=== PATIENT | female | born 1955 | race Caucasian/White ===

== ENCOUNTER 2017-06-06 14:41 | Inpatient (IN) | payer BC, MEDICARE ==
[2017-06-06] MEDS ORDERED: MIDAZOLAM 1 MG/ML 2 ML INJ ×2 (16:37)
[2017-06-06] MEDS ORDERED: PROPOFOL 20 ML (16:37)
[2017-06-06] MEDS ORDERED: HYDROCORTISONE 100 MG INJ (16:37)
[2017-06-06] MEDS ORDERED: ROPIVACAINE 0.5 % 30 ML VIAL ×2 (16:42→17:10)
[2017-06-06] MEDS ORDERED: CEFAZOLIN 1 GM INJ (17:48)
[2017-06-06] MEDS ORDERED: OXYCODONE/ACETAMINOPHEN (5/325) TAB PO ×3 (18:00→20:00)
[2017-06-06] MEDS ORDERED: DIPHENHYDRAMINE 25 MG CAP PO (18:00)
[2017-06-06] MEDS ORDERED: morphine 10 MG INJ IV (18:00)
[2017-06-06] MEDS ORDERED: PHENYLephrine (100 MCG/ML) 5ML SYG ×2 (18:00→20:11)
[2017-06-06] MEDS ORDERED: ROCURONIUM 50 MG INJ (18:17)
[2017-06-06] MEDS: POLYMYXIN/BACITRACIN 1L IRRIG (18:33)
[2017-06-06] MEDS ORDERED: METOCLOPRAMIDE 10 MG INJ (19:21)
[2017-06-06] MEDS ORDERED: DEXAMETHASONE 4 MG/ML 1 ML INJ (19:21)
[2017-06-06] MEDS ORDERED: ACETAMINOPHEN 1000MG/100ML IV 100 ML (19:21)
[2017-06-06] MEDS ORDERED: ONDANSETRON 4 MG INJ (19:21)
[2017-06-06] MEDS ORDERED: KETOROLAC 30 MG INJ (19:21)
[2017-06-06] MEDS ORDERED: SUGAMMADEX SODIUM 200 MG/2 ML VIAL IV (19:33)
[2017-06-06] MEDS ORDERED: hydrALAzine 20 MG INJ (19:38)
[2017-06-06] MEDS ORDERED: METOCLOPRAMIDE 10 MG INJ IV (20:00)
[2017-06-06] MEDS ORDERED: EPHEDrine SULFATE 50 MG/5 ML SYG IV (20:00)
[2017-06-06] MEDS ORDERED: FENTAnyl 50 MCG/ML VIAL IV (20:00)
[2017-06-06] MEDS ORDERED: HYDROmorphONE (0.2 MG/ML) 10ML SYG IV ×3 (20:00)
[2017-06-06] MEDS ORDERED: ONDANSETRON 4 MG INJ IV (20:00)
[2017-06-06] MEDS: BACITRACIN/POLYMYXIN 28.35 GM OINT TOP (20:37)
[2017-06-06] MEDS: FENTAnyl 50 MCG/ML VIAL IV ×2 (20:45→20:57)
[2017-06-06] MEDS: ONDANSETRON 4 MG INJ IV (20:59)
[2017-06-06] MEDS: MEPERIDINE 25 MG INJ IV (20:59)
[2017-06-06] MEDS: DIPHENHYDRAMINE 50 MG INJ IV (21:23)
[2017-06-06] MEDS: oxyCODONE 5 MG TAB PO (22:53)
[2017-06-07] MEDS: oxyCODONE 5 MG TAB PO ×7 (01:00→22:06)
[2017-06-07] MEDS: HYDROmorphONE 1 MG/ML SYG IV (05:41)
[2017-06-07] MEDS: ASPIRIN 81 MG TAB PO ×2 (08:30→20:38)
[2017-06-07] MEDS: VENLAFAXINE (XR) 75 MG CAP PO (08:31)
[2017-06-07] MEDS: PRIMIDONE 50 MG TAB PO ×3 (09:00→20:38)
[2017-06-07 09:21] LABS: ADD MAN DIFF? NO
[2017-06-07 09:36] LABS: BASOPHILS % 0.1 % (0.0-2.0); EOSINOPHILS % 0.1 % (0.0-7.0); HEMATOCRIT 37.8 % (37.0-47.0); HEMOGLOBIN 12.4 g/dl (12.0-16.0); LYMPHOCYTES # 1.2 10^3/ul (0.8-2.9); LYMPHOCYTES % 14.3 % (15.0-51.0); MEAN CORPUSCULAR HEMOGLOBIN 31.2 pg (29.0-33.0); MEAN CORPUSCULAR HGB CONC 32.8 g/dl (32.0-37.0); MEAN CORPUSCULAR VOLUME 95.2 fl (82.0-101.0); MEAN PLATELET VOLUME 9.9 fl (7.4-10.4); MONOCYTES % 11.3 % (0.0-11.0); NEUTROPHIL # 6.2 10^3/ul (1.6-7.5); PLATELET COUNT 228 10^3/UL (140-415); RED BLOOD COUNT 3.97 10^6/ul (4.20-5.40)
[2017-06-07 09:36] LABS: WHITE BLOOD COUNT 8.4 10^3/ul (4.8-10.8)
[2017-06-07 09:44] LABS: ALANINE AMINOTRANSFERASE 27 IU/L (13-69); ALBUMIN 3.5 g/dl (3.3-4.9); ALBUMIN/GLOBULIN RATIO 1.12; ALKALINE PHOSPHATASE 60 IU/L (42-121); ANION GAP 9 (8-16); ASPARTATE AMINO TRANSFERASE 27 IU/L (15-46); BILIRUBIN,INDIRECT 0.1 mg/dl (0-1.1); BILIRUBIN,TOTAL 0.1 mg/dl (0.2-1.3); BLOOD UREA NITROGEN 11 mg/dl (7-20); CARBON DIOXIDE 30 mmol/L (21-31); CHLORIDE 105 mmol/L (97-110); CREATININE 0.66 mg/dl (0.44-1.00); GLUCOSE 123 mg/dl (70-220); POTASSIUM 4.1 mmol/L (3.5-5.1); SODIUM 140 mmol/L (135-144); TOTAL PROTEIN 6.6 g/dl (6.1-8.1)
[2017-06-07] MEDS: predniSONE 5 MG TAB PO (11:23)
[2017-06-07] MEDS ORDERED: HYDROmorphONE 4 MG TAB PO (12:00)
[2017-06-07] MEDS: PREGABALIN 100 MG CAP PO (13:00)
[2017-06-07] MEDS: oxyCODONE (CR) 10 MG TAB [oxyCONTIN] PO (20:37)
[2017-06-07] MEDS: PREGABALIN 50 MG CAP PO (20:38)
[2017-06-08] MEDS: oxyCODONE 5 MG TAB PO (02:08)
[2017-06-08] MEDS: VENLAFAXINE (XR) 75 MG CAP PO (08:19)
[2017-06-08] MEDS: predniSONE 5 MG TAB PO (08:19)
[2017-06-08] MEDS: AMLODIPINE 5 MG TAB PO (08:20)
[2017-06-08] MEDS: ASPIRIN 81 MG TAB PO ×2 (08:20→19:59)
[2017-06-08] MEDS: oxyCODONE (CR) 10 MG TAB [oxyCONTIN] PO ×4 (08:29→19:58)
[2017-06-08] MEDS: PREGABALIN 50 MG CAP PO ×2 (08:29→19:59)
[2017-06-08] MEDS: CHOLECALCIFEROL 1,000 UNIT TAB PO (18:57)
[2017-06-08] MEDS: MULTIVITAMINS THERAPEUTIC TAB PO (18:57)
[2017-06-08] MEDS: PRIMIDONE 50 MG TAB PO (19:58)
[2017-06-08] MEDS: DOCUSATE SODIUM 100 MG CAP PO (23:20)
[2017-06-08] MEDS: POLYETHYLENE GLYCOL 17 GM PACKET PO (23:21)
[2017-06-09] MEDS: oxyCODONE 5 MG TAB PO ×2 (06:48→12:39)
[2017-06-09] MEDS: QUINACRINE PO (08:14)
[2017-06-09] MEDS: ASPIRIN 81 MG TAB PO ×2 (08:16→20:42)
[2017-06-09] MEDS: VENLAFAXINE (XR) 75 MG CAP PO (08:16)
[2017-06-09] MEDS: predniSONE 5 MG TAB PO (08:17)
[2017-06-09] MEDS: MULTIVITAMINS THERAPEUTIC TAB PO (08:17)
[2017-06-09] MEDS: AMLODIPINE 5 MG TAB PO (08:17)
[2017-06-09] MEDS: DOCUSATE SODIUM 100 MG CAP PO ×2 (08:17→20:41)
[2017-06-09] MEDS: POLYETHYLENE GLYCOL 17 GM PACKET PO (08:18)
[2017-06-09] MEDS: CHOLECALCIFEROL 1,000 UNIT TAB PO (08:18)
[2017-06-09] MEDS: oxyCODONE (CR) 10 MG TAB [oxyCONTIN] PO ×3 (08:32→20:42)
[2017-06-09] MEDS: PREGABALIN 50 MG CAP PO ×2 (08:32→20:42)
[2017-06-09] MEDS: PRIMIDONE 50 MG TAB PO (20:42)
[2017-06-10] MEDS: oxyCODONE 5 MG TAB PO ×3 (06:26→21:56)
[2017-06-10] MEDS: POLYETHYLENE GLYCOL 17 GM PACKET PO (09:12)
[2017-06-10] MEDS: QUINACRINE PO (09:13)
[2017-06-10] MEDS: CHOLECALCIFEROL 1,000 UNIT TAB PO (09:14)
[2017-06-10] MEDS: ASPIRIN 81 MG TAB PO ×2 (09:14→21:56)
[2017-06-10] MEDS: predniSONE 5 MG TAB PO (09:14)
[2017-06-10] MEDS: MULTIVITAMINS THERAPEUTIC TAB PO (09:14)
[2017-06-10] MEDS: PREGABALIN 50 MG CAP PO ×2 (09:14→21:56)
[2017-06-10] MEDS: DOCUSATE SODIUM 100 MG CAP PO ×2 (09:14→21:56)
[2017-06-10] MEDS: ALENDRONATE 70 MG TAB PO (09:15)
[2017-06-10] MEDS: VENLAFAXINE (XR) 75 MG CAP PO (09:15)
[2017-06-10] MEDS: oxyCODONE (CR) 10 MG TAB [oxyCONTIN] PO (09:17)
[2017-06-10] MEDS: PRIMIDONE 50 MG TAB PO (21:56)
[2017-06-11] MEDS: oxyCODONE 5 MG TAB PO ×2 (02:19→09:08)
[2017-06-11] MEDS: predniSONE 5 MG TAB PO (08:59)
[2017-06-11] MEDS: ASPIRIN 81 MG TAB PO ×2 (08:59→21:17)
[2017-06-11] MEDS: PREGABALIN 50 MG CAP PO ×2 (08:59→21:17)
[2017-06-11] MEDS: MULTIVITAMINS THERAPEUTIC TAB PO (08:59)
[2017-06-11] MEDS: VENLAFAXINE (XR) 75 MG CAP PO (08:59)
[2017-06-11] MEDS: POLYETHYLENE GLYCOL 17 GM PACKET PO (09:00)
[2017-06-11] MEDS: DOCUSATE SODIUM 100 MG CAP PO ×2 (09:00→21:17)
[2017-06-11] MEDS: QUINACRINE PO (09:00)
[2017-06-11] MEDS: CHOLECALCIFEROL 1,000 UNIT TAB PO (09:00)
[2017-06-11] MEDS: PRIMIDONE 50 MG TAB PO (21:17)
[2017-06-12] MEDS: VENLAFAXINE (XR) 75 MG CAP PO (08:59)
[2017-06-12] MEDS: DOCUSATE SODIUM 100 MG CAP PO ×2 (08:59→20:38)
[2017-06-12] MEDS: CHOLECALCIFEROL 1,000 UNIT TAB PO (08:59)
[2017-06-12] MEDS: QUINACRINE PO (09:00)
[2017-06-12] MEDS: POLYETHYLENE GLYCOL 17 GM PACKET PO (09:00)
[2017-06-12] MEDS: predniSONE 5 MG TAB PO (09:00)
[2017-06-12] MEDS: PREGABALIN 50 MG CAP PO ×2 (09:00→20:38)
[2017-06-12] MEDS: MULTIVITAMINS THERAPEUTIC TAB PO (09:00)
[2017-06-12] MEDS: ASPIRIN 81 MG TAB PO (09:00)
[2017-06-12] MEDS: oxyCODONE 5 MG TAB PO ×2 (10:46→15:07)
[2017-06-12] MEDS: HYDROCHLOROTHIAZIDE 25 MG TAB PO (11:39)
[2017-06-12] MEDS: AMLODIPINE 10 MG TAB PO (11:40)
[2017-06-12] MEDS: LOSARTAN 50 MG TAB PO (11:40)
[2017-06-12] MEDS: ACETAMINOPHEN 325 MG TAB PO (12:31)
[2017-06-12 17:28] LABS: ADD MAN DIFF? NO
[2017-06-12 17:36] LABS: BASOPHILS % 0.5 % (0.0-2.0); EOSINOPHILS # 0.2 10^3/ul (0.0-0.5); EOSINOPHILS % 2.4 % (0.0-7.0); HEMATOCRIT 40.2 % (37.0-47.0); HEMOGLOBIN 13.2 g/dl (12.0-16.0); LYMPHOCYTES # 1.2 10^3/ul (0.8-2.9); LYMPHOCYTES % 18.5 % (15.0-51.0); MEAN CORPUSCULAR HEMOGLOBIN 30.9 pg (29.0-33.0); MEAN CORPUSCULAR HGB CONC 32.8 g/dl (32.0-37.0); MEAN CORPUSCULAR VOLUME 94.1 fl (82.0-101.0); MEAN PLATELET VOLUME 9.6 fl (7.4-10.4); MONOCYTE # 0.5 10^3/ul (0.3-0.9); MONOCYTES % 7.3 % (0.0-11.0); NEUTROPHIL # 4.4 10^3/ul (1.6-7.5); PLATELET COUNT 285 10^3/UL (140-415); RED BLOOD COUNT 4.27 10^6/ul (4.20-5.40); RED CELL DISTRIBUTION WIDTH 13.5 % (11.5-14.5)
[2017-06-12 17:36] LABS: WHITE BLOOD COUNT 6.3 10^3/ul (4.8-10.8)
[2017-06-12 18:05] LABS: ANION GAP 14 (8-16); BLOOD UREA NITROGEN 14 mg/dl (7-20); CALCIUM 9.1 mg/dl (8.4-10.2); CARBON DIOXIDE 28 mmol/L (21-31); CHLORIDE 102 mmol/L (97-110); CREATININE 0.71 mg/dl (0.44-1.00); GLUCOSE 134 mg/dl (70-220); PHOSPHORUS 3.6 mg/dl (2.5-4.9); POTASSIUM 3.9 mmol/L (3.5-5.1); SODIUM 140 mmol/L (135-144)
[2017-06-12] MEDS: RIVAROXABAN 10 MG TABLET PO (18:20)
[2017-06-12] MEDS: AMLODIPINE 5 MG TAB PO (20:39)
[2017-06-12] MEDS: PRIMIDONE 50 MG TAB PO (20:39)
[2017-06-13] MEDS: POLYETHYLENE GLYCOL 17 GM PACKET PO (09:00)
[2017-06-13] MEDS ORDERED: AMLODIPINE 10 MG TAB PO (09:00)
[2017-06-13] MEDS: DOCUSATE SODIUM 100 MG CAP PO ×2 (09:21→20:53)
[2017-06-13] MEDS: CHOLECALCIFEROL 1,000 UNIT TAB PO (09:21)
[2017-06-13] MEDS: oxyCODONE 5 MG TAB PO ×2 (09:23→18:21)
[2017-06-13] MEDS: MULTIVITAMINS THERAPEUTIC TAB PO (09:23)
[2017-06-13] MEDS: PREGABALIN 50 MG CAP PO ×2 (09:23→20:52)
[2017-06-13] MEDS: predniSONE 5 MG TAB PO (09:24)
[2017-06-13] MEDS: VENLAFAXINE (XR) 75 MG CAP PO (09:24)
[2017-06-13] MEDS: AMLODIPINE 5 MG TAB PO ×2 (09:25→20:52)
[2017-06-13] MEDS: HYDROCHLOROTHIAZIDE 25 MG TAB PO (09:25)
[2017-06-13] MEDS: LOSARTAN 50 MG TAB PO (09:25)
[2017-06-13] MEDS: QUINACRINE PO (09:26)
[2017-06-13] MEDS: RIVAROXABAN 10 MG TABLET PO (18:11)
[2017-06-13] MEDS: PRIMIDONE 50 MG TAB PO (20:51)
[2017-06-14] MEDS: PREGABALIN 50 MG CAP PO ×2 (08:41→21:05)
[2017-06-14] MEDS: VENLAFAXINE (XR) 75 MG CAP PO (08:42)
[2017-06-14] MEDS: CHOLECALCIFEROL 1,000 UNIT TAB PO (08:42)
[2017-06-14] MEDS: HYDROCHLOROTHIAZIDE 25 MG TAB PO (08:42)
[2017-06-14] MEDS: DOCUSATE SODIUM 100 MG CAP PO ×2 (08:42→21:05)
[2017-06-14] MEDS: LOSARTAN 50 MG TAB PO (08:43)
[2017-06-14] MEDS: predniSONE 5 MG TAB PO (08:43)
[2017-06-14] MEDS: AMLODIPINE 5 MG TAB PO ×2 (08:43→21:00)
[2017-06-14] MEDS: MULTIVITAMINS THERAPEUTIC TAB PO (08:43)
[2017-06-14] MEDS: QUINACRINE PO (08:44)
[2017-06-14] MEDS: POLYETHYLENE GLYCOL 17 GM PACKET PO (08:45)
[2017-06-14] MEDS: oxyCODONE 5 MG TAB PO ×2 (08:45→18:31)
[2017-06-14] MEDS: RIVAROXABAN 10 MG TABLET PO (18:31)
[2017-06-14] MEDS: PRIMIDONE 50 MG TAB PO (21:05)
[2017-06-15] MEDS: POLYETHYLENE GLYCOL 17 GM PACKET PO ×2 (09:00→09:39)
[2017-06-15] MEDS: DOCUSATE SODIUM 100 MG CAP PO ×2 (09:37→20:49)
[2017-06-15] MEDS: VENLAFAXINE (XR) 75 MG CAP PO (09:38)
[2017-06-15] MEDS: CHOLECALCIFEROL 1,000 UNIT TAB PO (09:38)
[2017-06-15] MEDS: LOSARTAN 50 MG TAB PO (09:38)
[2017-06-15] MEDS: MULTIVITAMINS THERAPEUTIC TAB PO (09:38)
[2017-06-15] MEDS: predniSONE 5 MG TAB PO (09:38)
[2017-06-15] MEDS: AMLODIPINE 5 MG TAB PO ×2 (09:38→20:49)
[2017-06-15] MEDS: HYDROCHLOROTHIAZIDE 25 MG TAB PO (09:38)
[2017-06-15] MEDS: QUINACRINE PO (09:39)
[2017-06-15] MEDS: PREGABALIN 50 MG CAP PO ×2 (09:41→20:49)
[2017-06-15 10:57] LABS: ADD MAN DIFF? NO
[2017-06-15 11:06] LABS: BASOPHILS % 0.3 % (0.0-2.0); EOSINOPHILS # 0.2 10^3/ul (0.0-0.5); EOSINOPHILS % 3.5 % (0.0-7.0); HEMATOCRIT 42.4 % (37.0-47.0); HEMOGLOBIN 13.7 g/dl (12.0-16.0); LYMPHOCYTES # 1.8 10^3/ul (0.8-2.9); LYMPHOCYTES % 29.4 % (15.0-51.0); MEAN CORPUSCULAR HEMOGLOBIN 30.4 pg (29.0-33.0); MEAN CORPUSCULAR HGB CONC 32.3 g/dl (32.0-37.0); MEAN CORPUSCULAR VOLUME 94.2 fl (82.0-101.0); MEAN PLATELET VOLUME 9.6 fl (7.4-10.4); MONOCYTE # 0.4 10^3/ul (0.3-0.9); NEUTROPHIL # 3.5 10^3/ul (1.6-7.5); NEUTROPHILS % 59.5 % (39.0-77.0); PLATELET COUNT 310 10^3/UL (140-415); RED CELL DISTRIBUTION WIDTH 13.5 % (11.5-14.5)
[2017-06-15 11:28] LABS: ANION GAP 15 (8-16); BLOOD UREA NITROGEN 18 mg/dl (7-20); CALCIUM 9.2 mg/dl (8.4-10.2); CARBON DIOXIDE 30 mmol/L (21-31); CHLORIDE 101 mmol/L (97-110); CREATININE 0.74 mg/dl (0.44-1.00); GLUCOSE 131 mg/dl (70-220); POTASSIUM 3.6 mmol/L (3.5-5.1); SODIUM 142 mmol/L (135-144)
[2017-06-15] MEDS: oxyCODONE 5 MG TAB PO (14:33)
[2017-06-15] MEDS: RIVAROXABAN 10 MG TABLET PO (17:40)
[2017-06-15] MEDS: PRIMIDONE 50 MG TAB PO (20:49)
[2017-06-16] MEDS: POLYETHYLENE GLYCOL 17 GM PACKET PO (09:00)
[2017-06-16] MEDS: PREGABALIN 50 MG CAP PO ×2 (09:15→21:01)
[2017-06-16] MEDS: MULTIVITAMINS THERAPEUTIC TAB PO (09:15)
[2017-06-16] MEDS: VENLAFAXINE (XR) 75 MG CAP PO (09:16)
[2017-06-16] MEDS: LOSARTAN 50 MG TAB PO (09:16)
[2017-06-16] MEDS: HYDROCHLOROTHIAZIDE 25 MG TAB PO (09:16)
[2017-06-16] MEDS: CHOLECALCIFEROL 1,000 UNIT TAB PO (09:16)
[2017-06-16] MEDS: QUINACRINE PO (09:17)
[2017-06-16] MEDS: DOCUSATE SODIUM 100 MG CAP PO ×2 (09:17→20:59)
[2017-06-16] MEDS: AMLODIPINE 5 MG TAB PO ×2 (09:17→21:00)
[2017-06-16] MEDS: predniSONE 5 MG TAB PO (09:17)
[2017-06-16] MEDS: RIVAROXABAN 10 MG TABLET PO (17:59)
[2017-06-16] MEDS: PRIMIDONE 50 MG TAB PO (21:00)
[2017-06-16] MEDS: ZOLPIDEM 5 MG TAB PO (21:05)
[2017-06-17] MEDS: predniSONE 5 MG TAB PO (08:56)
[2017-06-17] MEDS: CHOLECALCIFEROL 1,000 UNIT TAB PO (08:56)
[2017-06-17] MEDS: POLYETHYLENE GLYCOL 17 GM PACKET PO (08:56)
[2017-06-17] MEDS: MULTIVITAMINS THERAPEUTIC TAB PO (08:56)
[2017-06-17] MEDS: VENLAFAXINE (XR) 75 MG CAP PO (08:57)
[2017-06-17] MEDS: LOSARTAN 50 MG TAB PO (08:57)
[2017-06-17] MEDS: DOCUSATE SODIUM 100 MG CAP PO ×2 (08:57→21:18)
[2017-06-17] MEDS: AMLODIPINE 5 MG TAB PO ×2 (08:58→21:18)
[2017-06-17] MEDS: QUINACRINE PO (08:59)
[2017-06-17] MEDS: PREGABALIN 50 MG CAP PO ×2 (09:04→21:18)
[2017-06-17] MEDS: HYDROCHLOROTHIAZIDE 25 MG TAB PO (09:05)
[2017-06-17] MEDS: oxyCODONE 5 MG TAB PO (12:28)
[2017-06-17] MEDS: RIVAROXABAN 10 MG TABLET PO (18:22)
[2017-06-17] MEDS: PRIMIDONE 50 MG TAB PO (21:18)
[2017-06-18] MEDS: oxyCODONE 5 MG TAB PO ×2 (00:28→06:40)
[2017-06-18] MEDS: POLYETHYLENE GLYCOL 17 GM PACKET PO (09:00)
[2017-06-18] MEDS: CHOLECALCIFEROL 1,000 UNIT TAB PO (09:30)
[2017-06-18] MEDS: QUINACRINE PO (09:30)
[2017-06-18] MEDS: MULTIVITAMINS THERAPEUTIC TAB PO (09:30)
[2017-06-18] MEDS: DOCUSATE SODIUM 100 MG CAP PO (09:31)
[2017-06-18] MEDS: LOSARTAN 50 MG TAB PO (09:31)
[2017-06-18] MEDS: predniSONE 5 MG TAB PO (09:31)
[2017-06-18] MEDS: HYDROCHLOROTHIAZIDE 25 MG TAB PO (09:32)
[2017-06-18] MEDS: VENLAFAXINE (XR) 75 MG CAP PO (09:32)
[2017-06-18] MEDS: AMLODIPINE 5 MG TAB PO (09:33)
[2017-06-18] MEDS: PREGABALIN 50 MG CAP PO (09:35)
[2017-06-18 12:28] LABS: ADD MAN DIFF? NO
[2017-06-18 12:29] LABS: WHITE BLOOD COUNT 10.1 10^3/ul (4.8-10.8)
[2017-06-18 12:29] LABS: BASOPHIL # 0.1 10^3/ul (0.0-0.1); BASOPHILS % 0.5 % (0.0-2.0); EOSINOPHILS # 0.1 10^3/ul (0.0-0.5); EOSINOPHILS % 1.4 % (0.0-7.0); HEMATOCRIT 41.1 % (37.0-47.0); HEMOGLOBIN 13.6 g/dl (12.0-16.0); LYMPHOCYTES # 1.4 10^3/ul (0.8-2.9); LYMPHOCYTES % 13.9 % (15.0-51.0); MEAN CORPUSCULAR HEMOGLOBIN 30.8 pg (29.0-33.0); MEAN CORPUSCULAR HGB CONC 33.1 g/dl (32.0-37.0); MEAN CORPUSCULAR VOLUME 93.2 fl (82.0-101.0); MEAN PLATELET VOLUME 9.3 fl (7.4-10.4); MONOCYTE # 0.8 10^3/ul (0.3-0.9); MONOCYTES % 8.2 % (0.0-11.0); NEUTROPHIL # 7.6 10^3/ul (1.6-7.5); NEUTROPHILS % 75.4 % (39.0-77.0); PLATELET COUNT 321 10^3/UL (140-415); RED BLOOD COUNT 4.41 10^6/ul (4.20-5.40); RED CELL DISTRIBUTION WIDTH 13.6 % (11.5-14.5)
[2017-06-18 12:52] LABS: ANION GAP 12 (8-16); BLOOD UREA NITROGEN 22 mg/dl (7-20); CARBON DIOXIDE 34 mmol/L (21-31); CHLORIDE 98 mmol/L (97-110); CREATININE 0.85 mg/dl (0.44-1.00); GLUCOSE 102 mg/dl (70-220); POTASSIUM 3.8 mmol/L (3.5-5.1); SODIUM 140 mmol/L (135-144)
== END 2017-06-18 13:16 | disposition home or self-care (01) | DRG 505 ==
LOC: SDS 14:41 → REC 21:50 → SDS 06-09 15:50 → MS1 06-09 15:52 → SDS 17:35 → MS1 21:50 → SDS 17:35 → REC 18:22 → MS1 21:50
PROC: 0QSN04Z Reposition Right Metatarsal with Internal Fixation Device, Open Approach (ICD-10-PCS; principal; 2017-06-06 17:00)
DX: S93.324A Dislocation of tarsometatarsal joint of right foot, initial encounter (principal); M32.9 Systemic lupus erythematosus, unspecified; I10 Essential (primary) hypertension; R25.1 Tremor, unspecified; M81.0 Age-related osteoporosis without current pathological fracture; F41.9 Anxiety disorder, unspecified; E55.9 Vitamin D deficiency, unspecified; Z79.52 Long term (current) use of systemic steroids; W18.30XA Fall on same level, unspecified, initial encounter; R42 Dizziness and giddiness
CPT/HCPCS: 73630; 80048; 80053; 82306; 82607; 83735; 84100; 85025; 97110; 97116; 97530; 97535; 97542

== ENCOUNTER 2018-05-09 08:18 | Day surgery (SDC) | payer BC, MEDICARE ==
[~2018-05-09 08:18] MED LIST: PROPOFOL 200 MG INJ
[2018-05-09] MEDS: HYDROmorphONE 1 MG/ML SYG IV (13:39)
[2018-05-09] MEDS ORDERED: MIDAZOLAM 1 MG/ML 2 ML INJ (13:59)
[2018-05-09] MEDS ORDERED: PROPOFOL 20 ML (13:59)
[2018-05-09] MEDS ORDERED: ONDANSETRON 4 MG INJ (14:00)
[2018-05-09] MEDS ORDERED: HYDROmorphONE 1 MG/5 ML IV SYRINGE IV ×3 (14:00)
[2018-05-09] MEDS ORDERED: ONDANSETRON 4 MG INJ IV (14:00)
[2018-05-09] MEDS ORDERED: MEPERIDINE 25 MG INJ IV (14:00)
[2018-05-09] MEDS ORDERED: METOCLOPRAMIDE 10 MG INJ (14:00)
[2018-05-09] MEDS ORDERED: DIPHENHYDRAMINE 50 MG INJ IV (14:00)
[2018-05-09] MEDS: ROPIVACAINE 0.5 % 30 ML VIAL (14:29)
[2018-05-09] MEDS: POLYMYXIN/BACITRACIN 1L IRRIG (14:29)
[2018-05-09] MEDS ORDERED: HYDROCORTISONE 100 MG INJ (14:30)
[2018-05-09] MEDS ORDERED: FENTAnyl 50 MCG/ML VIAL (14:34)
[2018-05-09] MEDS ORDERED: CEFAZOLIN 1 GM INJ (14:34)
[2018-05-09] MEDS ORDERED: EPHEDrine SULFATE 50 MG/5 ML SYG (14:34)
[2018-05-09] MEDS ORDERED: NEOMYC/POLYMYX/BACIT 3.5GM OPH OINT (14:52)
[2018-05-09] MEDS ORDERED: NEOMYC/POLYMYX/BACIT 30 GM OINT (14:52)
== END 2018-05-09 18:30 | disposition home or self-care (01) ==
LOC: SDS 08:18
DX: M17.12 Unilateral primary osteoarthritis, left knee (principal)
CPT/HCPCS: 0232T; 73630; 88300